=== PATIENT | female | born 1945 | race Caucasian/White ===

== ENCOUNTER 2020-05-22 18:29 | Observation (INO) | payer MEDICARE ==
[~2020-05-22] VITALS: Ht 165.1 cm; Wt 87.5 kg
[2020-05-22] MEDS ORDERED: IV NORMAL SALINE 500ML BAG 500 ML IV ONE (19:00)
[2020-05-22 19:03] LABS: BASO # 0.1 x10^3/uL (0.0-0.2); BASO % 1 % (0-3); EOS % 0 % (0-3); HEMATOCRIT 40.3 % (36.0-47.0); HEMOGLOBIN 13.8 g/dL (12.0-15.5); LYMPH # 3.9 x10^3/uL (1.0-4.8); LYMPH % 28 % (24-48); MEAN CORPUSCULAR HEMOGLOBIN 33 pg (25-35); MEAN CORPUSCULAR HGB CONC 34 g/dL (31-37); MEAN CORPUSCULAR VOLUME 95 fL (79-100); MONO # 0.8 x10^3/uL (0.0-1.1); MONO % 6 % (0-9); NEUT # 8.9 x10^3/uL (1.8-7.7); NEUT % 66 % (31-73); PLATELET COUNT 260 x10^3/uL (140-400); RED BLOOD COUNT 4.23 x10^6/uL (3.50-5.40); RED CELL DISTRIBUTION WIDTH 12.3 % (11.5-14.5); WHITE BLOOD COUNT 13.6 x10^3/uL (4.0-11.0)
[2020-05-22 19:12] LABS: PROTHROMBIN TIME PATIENT 12.3 SEC (11.7-14.0)
[2020-05-22] MEDS: NITROGLYCERIN SUBLINGUAL 0.4 MG BOTTLE OF 25. SL PRN ×3 (19:12→19:29)
[2020-05-22 19:14] LABS: CALCIUM 9.4 mg/dL (8.5-10.1); CREATININE 1.1 mg/dL (0.6-1.0); GFR 48.3; POTASSIUM 3.4 mmol/L (3.5-5.1)
[2020-05-22 19:16] LABS: D-DIMER 0.33 ug/mlFEU (0.00-0.50)
--- NOTE | 2020-05-22 19:18 | ED.ADGEN ---
General Adult EDM: Chief Complaint: CHEST PAIN HPI: HPI: Patient is a 75 year [id number] female coming in for left-sided chest heaviness. History is limited by patient's cooperation due to distress. Patient denies any cardiac history as history of hypertension. She was taking a hot shower when she felt lightheaded but did not pass out said the chest pain following which she described as heaviness, 8 out of 10, nonradiating. Has not had this kind of pain in the past. Was given 324 mg aspirin by EMS. Pain sta rted at 1645 Onset is around patient is still anxious and tachypneic. Asked patient to slow her breathing but she appears very anxious and dramatic. Presents as she has been under increased rest recently due to Covid. Review of Systems: Review of Systems: Limited by patient distress and cooperation, complaining of chest pain and near syncopal episode. Denies pain anywhere else or recent illness Current Medications: Current Medications Medications (Trade) Dose Ordered Sig/John Start Time Stop Time Status Last Admin Dose Admin Fentanyl Citrate (Fentanyl 2ml Vial) 75 mcg 1X ONCE 05/22/20 19:30 05/22/20 19:31 DC 05/22/20 19:14 75 MCG Nitroglycerin (Nitrostat) 0.4 mg PRN Q5MIN PRN 05/22/20 19:00 05/22/20 23:35 DC 05/22/20 19:29 0.4 MG Sodium Chloride 1,000 ml @ 1,000 mls/hr 1X ONCE 05/22/20 21:00 05/22/20 21:59 DC 05/22/20 21:00 1,000 MLS/HR Allergies: Allergies: Allergies Coded Allergies Type Severity Reaction Last Updated Verified Penicillins Allergy Severe Rash 05/22/20 Yes Sulfa (Sulfonamide Antibiotics) Allergy Severe Rash 05/22/20 Yes Physical Exam: PE: Constitutional: Well developed, well nourished, acute distress. [] HENT: Normocephalic, atraumatic, bilateral external ears normal, oropharynx moist, no oral exudates, nose normal. [] Eyes: PERRLA, EOMI, conjunctiva normal, no discharge. [] Neck: Normal range of motion, no tenderness, supple, no stridor. [] Symmetric radial pulse Cardiovascular:Heart rate regular rhythm, no murmur [] no chest tenderness Lungs & Thorax: Bilateral breath sounds clear to auscultation [] Abdomen: Bowel sounds normal, soft, no tenderness, no masses, no pulsatile masses. [] Skin: Warm, dry, no erythema, no rash. [] Extremities: No tenderness, no cyanosis, no clubbing, ROM intact, no edema. [] Neurologic: Alert and oriented X 3, normal motor function, normal sensory function, no focal deficits noted. [] Psychologic: Affect normal, judgement normal, mood normal. [] Current Patient Data: Labs: Laboratory Tests Test 05/22/20 18:38 05/22/20 22:15 05/22/20 22:25 White Blood Count 13.6 x10^3/uL (4.0-11.0) H Red Blood Count 4.23 x10^6/uL (3.50-5.40) Hemoglobin 13.8 g/dL (12.0-15.5) Hematocrit 40.3 % (36.0-47.0) Mean Corpuscular Volume 95 fL (79-100) Mean Corpuscular Hemoglobin 33 pg (25-35) Mean Corpuscular Hemoglobin Concent 34 g/dL (31-37) Red Cell Distribution Width 12.3 % (11.5-14.5) Platelet Count 260 x10^3/uL (140-400) Neutrophils (%) (Auto) 66 % (31-73) Lymphocytes (%) (Auto) 28 % (24-48) Monocytes (%) (Auto) 6 % (0-9) Eosinophils (%) (Auto) 0 % (0-3) Basophils (%) (Auto) 1 % (0-3) Neutrophils # (Auto) 8.9 x10^3/uL (1.8-7.7) H Lymphocytes # (Auto) 3.9 x10^3/uL (1.0-4.8) Monocytes # (Auto) 0.8 x10^3/uL (0.0-1.1) Eosinophils # (Auto) 0.0 x10^3/uL (0.0-0.7) Basophils # (Auto) 0.1 x10^3/uL (0.0-0.2) Prothrombin Time 12.3 SEC (11.7-14.0) Prothrombin Time INR 1.0 (0.8-1.1) D-Dimer (May) 0.33 ug/mlFEU (0.00-0.50) Sodium Level 139 mmol/L (136-145) Potassium Level 3.4 mmol/L (3.5-5.1) L Chloride Level 101 mmol/L (98-107) Carbon Dioxide Level 22 mmol/L (21-32) Anion Gap 16 (6-14) H Blood Urea Nitrogen 26 mg/dL (7-20) H Creatinine 1.1 mg/dL (0.6-1.0) H Estimated GFR (Cockcroft-Gault) 48.3 BUN/Creatinine Ratio 24 (6-20) H Glucose Level 175 mg/dL (70-99) H Calcium Level 9.4 mg/dL (8.5-10.1) Magnesium Level 1.7 mg/dL (1.8-2.4) L Total Bilirubin 0.4 mg/dL (0.2-1.0) Aspartate Amino Transferase (AST) 20 U/L (15-37) Alanine Aminotransferase (ALT) 26 U/L (14-59) Alkaline Phosphatase 78 U/L (46-116) Troponin I Quantitative < 0.017 ng/mL (0.000-0.055) < 0.017 ng/mL (0.000-0.055) WA-Lmt-[id number]-Type Natriuretic Peptide 129 pg/mL (0-449) Total Protein 7.2 g/dL (6.4-8.2) Albumin 4.2 g/dL (3.4-5.0) Albumin/Globulin Ratio 1.4 (1.0-1.7) Urine Collection Type Unknown Urine Color Yellow Urine Clarity Clear Urine pH 7.5 (<5.0-8.0) Urine Specific [place] 1.020 (1.000-1.030) Urine Protein Negative mg/dL (NEG-TRACE) Urine Glucose (UA) Negative mg/dL (NEG) Urine Ketones (Stick) 15 mg/dL (NEG) Urine Blood Negative (NEG) Urine Nitrite Negative (NEG) Urine Bilirubin Negative (NEG) Urine Urobilinogen Dipstick 1.0 mg/dL (0.2 mg/dL) Urine Leukocyte Esterase Small (NEG) Urine RBC 0 /HPF (0-2) Urine WBC 1-4 /HPF (0-4) Urine Squamous Epithelial Cells Mod /LPF Urine Bacteria Few /HPF (0-FEW) Urine Mucus Mod /LPF Urine Opiates Screen Neg (NEG) Urine Methadone Screen Neg (NEG) Urine Barbiturates Neg (NEG) Urine Phencyclidine Screen Neg (NEG) Urine Amphetamine/Methamphetamine Neg (NEG) Urine Benzodiazepines Screen Neg (NEG) Urine Cocaine Screen Neg (NEG) Urine Cannabinoids Screen Pos (NEG) Urine Ethyl Alcohol Neg (NEG) Laboratory Tests 05/22/20 18:38 Laboratory Tests 05/22/20 18:38 Vital Signs: Vital Signs Date Time Temp Pulse Resp B/P (MAP) Pulse Ox O2 Delivery O2 Flow Rate FiO2 05/22/20 23:00 98.0 104 23 116/53 (74) 95 Room Air 98.0 05/22/20 22:30 2.0 EKG: EK: Sinus tachycardia, heart rate 109 bpm, ST depressions in V4 V5 V6, no noted ST elevation [] Heart Score: HEART Score for Chest Pain: HEART Score for Chest Pain Response (Comments) Value History Highly Suspicious 2 ECG Nonspecific Repolarizatio 1 Age > 65 2 Risk Factors 1 or 2 Risk Factors 1 Troponin < Normal Limit 0 Total 6 Risk Factors: Risk Factors: DM, Current or recent (<one month) smoker, HTN, HLP, family history of CAD, obesity. Risk Scores: Score 0 - 3: 2.5% MACE over next 6 weeks - Discharge Home Score 4 - 6: 20.3% MACE over next 6 weeks - Admit for Clinical Observation Score 7 - 10: 72.7% MACE over next 6 weeks - Early Invasive Strategies Radiology/Procedures: Radiology/Procedures: Chest AP portable at 1901: Reason for examination: Chest pain. The heart size is normal. Mediastinum is unremarkable. Lung berg are clear. No acute bony abnormalities are seen. Impression: No acute cardiopulmonary disease.[] Course & Med Decision Making: Course & Med Decision Making Pertinent Labs and Imaging studies reviewed. (See chart for details) [] Dragon Disclaimer: Dragon Disclaimer: This electronic medical record was generated, in whole or in part, using a voice recognition dictation system. Departure Departure Impression: Primary Impression: Chest pain, rule out acute myocardial infarction Disposition: 09 ADMITTED INPT THIS HOSP Admitting Physician: ELISA Condition: STABLE TRACY MAZARIEGOS MD May 22, 2020 19:18
[2020-05-22 19:20] LABS: ALBUMIN 4.2 g/dL (3.4-5.0); ALBUMIN/GLOBULIN RATIO 1.4 (1.0-1.7); MAGNESIUM 1.7 mg/dL (1.8-2.4); TOTAL BILIRUBIN 0.4 mg/dL (0.2-1.0); TOTAL PROTEIN 7.2 g/dL (6.4-8.2)
--- NOTE | 2020-05-22 19:21 | RAD ---
Chest AP portable at 1901: Reason for examination: Chest pain. The heart size is normal. Mediastinum is unremarkable. Lung berg are clear. No acute bony abnormalities are seen. Impression: No acute cardiopulmonary disease. Electronically signed by: Janie Lundberg MD (05/22/2020 7:17 PM) KELLEN
[2020-05-22] MEDS ORDERED: fentaNYL PF VIAL 100 MCG/2 ML VIAL IVP ONE (19:30)
[2020-05-22] MEDS ORDERED: IV NORMAL SALINE 1000ML BAG 1,000 ML IV ONE (21:00)
[2020-05-22 22:42] LABS: BILIRUBIN,URINE NEGATIVE (NEG); CLARITY,URINE CLEAR; COLOR,URINE YELLOW; NITRITE,URINE NEGATIVE (NEG); PH,URINE 7.5 (<5.0-8.0); PROTEIN,URINE NEGATIVE (NEG-TRACE)
[2020-05-22 22:48] LABS: AMPHETAMINE/METHAMPHETAMINE NEG (NEG); BARBITURATES NEG (NEG); BENZODIAZEPINES NEG (NEG); CANNABINOIDS POS (NEG); COCAINE NEG (NEG); METHADONE NEG (NEG); OPIATES NEG (NEG); PHENCYCLIDINE NEG (NEG)
[2020-05-22 22:50] LABS: RBC,URINE 0 /HPF (0-2)
[2020-05-22 22:51] LABS: BACTERIA,URINE FEW /HPF (0-FEW)
[2020-05-22] MEDS ORDERED: NITROGLYCERIN SUBLINGUAL 0.4 MG BOTTLE OF 25. SL PRN (23:30)
[2020-05-22] MEDS ORDERED: ONDANSETRON PF 4 MG/2 ML VIAL. IV PRN (23:30)
[2020-05-22] MEDS ORDERED: ACETAMINOPHEN 325 MG TABLET. PO PRN (23:30)
[2020-05-22] MEDS ORDERED: fentaNYL PF VIAL 100 MCG/2 ML VIAL IV PRN (23:30)
[2020-05-23 00:35] VITALS: BP 124/72
[2020-05-23] MEDS ORDERED: CARB1DRO5 OP (02:55)
[2020-05-23] MEDS ORDERED: TRIA1CAP3 PO (02:55)
[2020-05-23] MEDS ORDERED: MULT-245 PO (02:55)
[2020-05-23] MEDS ORDERED: POTA5TAB2 PO (02:55)
[2020-05-23] MEDS ORDERED: LORA10TA3 PO (02:55)
[2020-05-23] MEDS ORDERED: ATOR40TA59 PO (02:55)
[2020-05-23] MEDS ORDERED: OMEP40CA45 PO (02:55)
[2020-05-23] MEDS ORDERED: ACET500T68 PO (02:55)
[2020-05-23] MEDS ORDERED: METO25TA4 PO (02:55)
[2020-05-23] MEDS ORDERED: ASPI-886 PO (02:55)
[2020-05-23] MEDS ORDERED: CALC-71 PO (02:55)
[2020-05-23] MEDS ORDERED: LISI20TA18 PO (02:55)
--- NOTE | 2020-05-23 02:59 | NUR ---
Patient arrived to unit at approx 0025 with protein chemist. Resting comfortably on RA. No complaints of pain. VS stable, assessment complete. Patient states that she was in the shower this morning when she started having chest tightness and dizziness, called EMS. Patient states that she normally walks 3 miles per day. Pt is currently living with her son and . Call light in reach, bed in low locked position, bed alarm on, reminded patient to call for assistance before ambulating. Will continue to monitor.
[2020-05-23 03:15] VITALS: BP 128/63
[2020-05-23 07:00] VITALS: BP 155/63
[2020-05-23] MEDS ORDERED: PANTOPRAZOLE 40 MG TABLET.DR. PO SCH (08:00)
--- NOTE | 2020-05-23 08:06 | PDOC1 ---
History and Physical Date of Admission Date of Admission DATE: 05/23/20 TIME: 07:52 Identification/Chief Complaint Chief Complaint Chest pain Source Source: Chart review, Patient History of Present Illness History of Present Illness Patient is a 75-year-old female past medical history hypertension, HLD, who presents to the ER with complaints of left-sided chest pain since yesterday afternoon. She reports chest heaviness, 8/10. Symptoms occurred as she was taking a shower, with associated lightheadedness. She denies any history of similar pain. This was contacted and she received aspirin prior to arrival to ER. Upon arrival in the ER she was in some noted distress and tachycardic. Her troponins have been negative. Due to her cardiac risk factors, we have been asked to admit patient for further evaluation. Past Medical History Past Medical History Hypertension, hyperlipidemia, GERD Past Surgical History Past Surgical History Hysterectomy, tonsillectomy Family History Family History Denies any pertinent history Social History Smoke: No ALCOHOL: none Drugs: Marijuana Current Problem List Problem List Problems Medical Problems: (1) Chest pain, rule out acute myocardial infarction Status: Acute Current Medications Current Medications Current Medications Fentanyl Citrate (Fentanyl 2ml Vial) 75 mcg 1X ONCE IVP Last administered on 05/22/20at 19:14; Start 05/22/20 at 19:30; Stop 05/22/20 at 19:31; Status DC Sodium Chloride 500 ml @ 500 mls/hr 1X ONCE IV Last administered on 05/22/20at 19:12; Start 05/22/20 at 19:00; Stop 05/22/20 at 19:59; Status DC Nitroglycerin (Nitrostat) 0.4 mg PRN Q5MIN PRN SL CP RATING > 1/10 Last administered on 05/22/20at 19:29; Start 05/22/20 at 19:00; Stop 05/22/20 at 23:35; Status DC Sodium Chloride 1,000 ml @ 1,000 mls/hr 1X ONCE IV Last administered on 05/22at 21:00; Start 05/22/20 at 21:00; Stop 05/22/20 at 21:59; Status DC Ondansetron HCl (Zofran) 4 mg PRN Q8HRS PRN IV NAUSEA/VOMITING 1ST CHOICE; Start 05/22/20 at 23:30; Stop 05/23/20 at 23:29 Fentanyl Citrate (Fentanyl 2ml Vial) 50 mcg PRN Q1HR PRN IV SEVERE PAIN 7-10; Start 05/22/20 at 23:30; Stop 05/23/20 at 23:29 Acetaminophen (Tylenol) 650 mg PRN Q4HRS PRN PO FEVER > 100.3'F Last administered on 05/23/20at 07:33; Start 05/22/20 at 23:30; Stop 05/23/20 at 23:29 Nitroglycerin (Nitrostat) 0.4 mg PRN Q5MIN PRN SL CHEST PAIN; Start 05/22/20 at 23:30; Stop 05/23/20 at 23:29 Active Scripts Active Reported Refresh Optive Advanced Drops (Carboxymethyl/Gly/Poly80/Pf) 1 Each Droperette 1 Each OP BID Acetaminophen 500 Mg Tablet 500 Mg PO HS Potassium Citrate 5 Meq Tablet.er 5 Meq PO DAILY Calcium 600 + Vit D Caplet (Calcium Carbonate/Vitamin D3) 1 Each Tablet 1 Each PO DAILY Multi Vitamin Daily (Multivitamin) 1 Each Tablet 1 Each PO DAILY Loratadine 10 Mg Tablet 10 Mg PO DAILY Aspirin Ec (Aspirin) 81 Mg Tablet.dr 81 Mg PO DAILY Metoprolol Tartrate 25 Mg Tablet 25 Mg PO DAILY Omeprazole 40 Mg Capsule.dr 40 Mg PO DAILY Triamterene-Hctz 37.5-25 Mg Cp (Triamterene/Hydrochlorothiazid) 1 Each Capsule 1 Cap PO DAILY Atorvastatin Calcium 40 Mg Tablet 40 Mg PO HS Lisinopril 20 Mg Tablet 20 Mg PO DAILY Allergies Allergies: Coded Allergies: Penicillins (Verified Allergy, Severe, Rash, 05/22/20) Sulfa (Sulfonamide Antibiotics) (Verified Allergy, Severe, Nausea, 05/23/20) upset stomach ROS Review of System GENERAL: No history of weight change, weakness or fevers. SKIN: No bruising, hair changes or rashes. EYES: No blurred, double or loss of vision. NOSE AND THROAT: No history of nosebleeds, hoarseness or sore throat. HEART: Chest pain. Denies palpitations. LUNGS: Denies cough, hemoptysis, wheezing or shortness of breath. GASTROINTESTINAL: Denies nausea, vomiting, abdominal pain. GENITOURINARY: Denies dysuria, frequency, urgency, hematuria. NEUROLOGIC: Denies history of numbness, tingling, tremor or weakness. PSYCHIATRIC: Denies anxiety, denies depression. ENDOCRINE: No history of heat or cold intolerance, polyuria or polydipsia. EXTREMITIES: Denies muscle weakness, joint pain, pain on walking or stiffness. Physical Exam Physical Exam General: Alert, Oriented X3, Cooperative, No acute distress HEENT: PERRLA, EOMI Lungs: Clear to auscultation, Normal air movement Heart: RRR, no murmurs Cardiovascular: S1, S2 Abdomen: Normal bowel sounds, Soft, No tenderness Extremities: No clubbing, No cyanosis Skin: No rashes, No significant lesion Neuro: Normal speech, Normal tone, Sensation intact Psych/Mental Status: Mental status NL, Mood NL Vitals Vitals Vital Signs Date Time Temp Pulse Resp B/P (MAP) Pulse Ox O2 Delivery O2 Flow Rate FiO2 05/23/20 03:15 98.4 85 18 128/63 (84) 97 Room Air 98.4 05/22/20 22:30 2.0 Labs Labs Laboratory Tests Test 05/22/20 18:38 05/22/20 22:15 05/22/20 22:25 05/23/20 00:20 White Blood Count 13.6 x10^3/uL (4.0-11.0) Red Blood Count 4.23 x10^6/uL (3.50-5.40) Hemoglobin 13.8 g/dL (12.0-15.5) Hematocrit 40.3 % (36.0-47.0) Mean Corpuscular Volume 95 fL (79-100) Mean Corpuscular Hemoglobin 33 pg (25-35) Mean Corpuscular Hemoglobin Concent 34 g/dL (31-37) Red Cell Distribution Width 12.3 % (11.5-14.5) Platelet Count 260 x10^3/uL (140-400) Neutrophils (%) (Auto) 66 % (31-73) Lymphocytes (%) (Auto) 28 % (24-48) Monocytes (%) (Auto) 6 % (0-9) Eosinophils (%) (Auto) 0 % (0-3) Basophils (%) (Auto) 1 % (0-3) Neutrophils # (Auto) 8.9 x10^3/uL (1.8-7.7) Lymphocytes # (Auto) 3.9 x10^3/uL (1.0-4.8) Monocytes # (Auto) 0.8 x10^3/uL (0.0-1.1) Eosinophils # (Auto) 0.0 x10^3/uL (0.0-0.7) Basophils # (Auto) 0.1 x10^3/uL (0.0-0.2) Prothrombin Time 12.3 SEC (11.7-14.0) Prothromb Time International Ratio 1.0 (0.8-1.1) D-Dimer (May) 0.33 ug/mlFEU (0.00-0.50) Sodium Level 139 mmol/L (136-145) Potassium Level 3.4 mmol/L (3.5-5.1) Chloride Level 101 mmol/L (98-107) Carbon Dioxide Level 22 mmol/L (21-32) Anion Gap 16 (6-14) Blood Urea Nitrogen 26 mg/dL (7-20) Creatinine 1.1 mg/dL (0.6-1.0) Estimated GFR (Cockcroft-Gault) 48.3 BUN/Creatinine Ratio 24 (6-20) Glucose Level 175 mg/dL (70-99) Calcium Level 9.4 mg/dL (8.5-10.1) Magnesium Level 1.7 mg/dL (1.8-2.4) Total Bilirubin 0.4 mg/dL (0.2-1.0) Aspartate Amino Transf (AST/SGOT) 20 U/L (15-37) Alanine Aminotransferase (ALT/SGPT) 26 U/L (14-59) Alkaline Phosphatase 78 U/L (46-116) Troponin I Quantitative < 0.017 ng/mL (0.000-0.055) < 0.017 ng/mL (0.000-0.055) < 0.017 ng/mL (0.000-0.055) FE-Jwj-G-Type Natriuretic Peptide 129 pg/mL (0-449) Total Protein 7.2 g/dL (6.4-8.2) Albumin 4.2 g/dL (3.4-5.0) Albumin/Globulin Ratio 1.4 (1.0-1.7) Urine Collection Type Unknown Urine Color Yellow Urine Clarity Clear Urine pH 7.5 (<5.0-8.0) Urine Specific [place] 1.020 (1.000-1.030) Urine Protein Negative mg/dL (NEG-TRACE) Urine Glucose (UA) Negative mg/dL (NEG) Urine Ketones (Stick) 15 mg/dL (NEG) Urine Blood Negative (NEG) Urine Nitrite Negative (NEG) Urine Bilirubin Negative (NEG) Urine Urobilinogen Dipstick 1.0 mg/dL (0.2 mg/dL) Urine Leukocyte Esterase Small (NEG) Urine RBC 0 /HPF (0-2) Urine WBC 1-4 /HPF (0-4) Urine Squamous Epithelial Cells Mod /LPF Urine Bacteria Few /HPF (0-FEW) Urine Mucus Mod /LPF Urine Opiates Screen Neg (NEG) Urine Methadone Screen Neg (NEG) Urine Barbiturates Neg (NEG) Urine Phencyclidine Screen Neg (NEG) Urine Amphetamine/Methamphetamine Neg (NEG) Urine Benzodiazepines Screen Neg (NEG) Urine Cocaine Screen Neg (NEG) Urine Cannabinoids Screen Pos (NEG) Urine Ethyl Alcohol Neg (NEG) Laboratory Tests Test 05/22/20 18:38 05/22/20 22:15 05/22/20 22:25 05/23/20 00:20 White Blood Count 13.6 x10^3/uL (4.0-11.0) Red Blood Count 4.23 x10^6/uL (3.50-5.40) Hemoglobin 13.8 g/dL (12.0-15.5) Hematocrit 40.3 % (36.0-47.0) Mean Corpuscular Volume 95 fL (79-100) Mean Corpuscular Hemoglobin 33 pg (25-35) Mean Corpuscular Hemoglobin Concent 34 g/dL (31-37) Red Cell Distribution Width 12.3 % (11.5-14.5) Platelet Count 260 x10^3/uL (140-400) Neutrophils (%) (Auto) 66 % (31-73) Lymphocytes (%) (Auto) 28 % (24-48) Monocytes (%) (Auto) 6 % (0-9) Eosinophils (%) (Auto) 0 % (0-3) Basophils (%) (Auto) 1 % (0-3) Neutrophils # (Auto) 8.9 x10^3/uL (1.8-7.7) Lymphocytes # (Auto) 3.9 x10^3/uL (1.0-4.8) Monocytes # (Auto) 0.8 x10^3/uL (0.0-1.1) Eosinophils # (Auto) 0.0 x10^3/uL (0.0-0.7) Basophils # (Auto) 0.1 x10^3/uL (0.0-0.2) Prothrombin Time 12.3 SEC (11.7-14.0) Prothromb Time International Ratio 1.0 (0.8-1.1) D-Dimer (May) 0.33 ug/mlFEU (0.00-0.50) Sodium Level 139 mmol/L (136-145) Potassium Level 3.4 mmol/L (3.5-5.1) Chloride Level 101 mmol/L (98-107) Carbon Dioxide Level 22 mmol/L (21-32) Anion Gap 16 (6-14) Blood Urea Nitrogen 26 mg/dL (7-20) Creatinine 1.1 mg/dL (0.6-1.0) Estimated GFR (Cockcroft-Gault) 48.3 BUN/Creatinine Ratio 24 (6-20) Glucose Level 175 mg/dL (70-99) Calcium Level 9.4 mg/dL (8.5-10.1) Magnesium Level 1.7 mg/dL (1.8-2.4) Total Bilirubin 0.4 mg/dL (0.2-1.0) Aspartate Amino Transf (AST/SGOT) 20 U/L (15-37) Alanine Aminotransferase (ALT/SGPT) 26 U/L (14-59) Alkaline Phosphatase 78 U/L (46-116) Troponin I Quantitative < 0.017 ng/mL (0.000-0.055) < 0.017 ng/mL (0.000-0.055) < 0.017 ng/mL (0.000-0.055) MJ-Fci-E-Type Natriuretic Peptide 129 pg/mL (0-449) Total Protein 7.2 g/dL (6.4-8.2) Albumin 4.2 g/dL (3.4-5.0) Albumin/Globulin Ratio 1.4 (1.0-1.7) Urine Collection Type Unknown Urine Color Yellow Urine Clarity Clear Urine pH 7.5 (<5.0-8.0) Urine Specific [place] 1.020 (1.000-1.030) Urine Protein Negative mg/dL (NEG-TRACE) Urine Glucose (UA) Negative mg/dL (NEG) Urine Ketones (Stick) 15 mg/dL (NEG) Urine Blood Negative (NEG) Urine Nitrite Negative (NEG) Urine Bilirubin Negative (NEG) Urine Urobilinogen Dipstick 1.0 mg/dL (0.2 mg/dL) Urine Leukocyte Esterase Small (NEG) Urine RBC 0 /HPF (0-2) Urine WBC 1-4 /HPF (0-4) Urine Squamous Epithelial Cells Mod /LPF Urine Bacteria Few /HPF (0-FEW) Urine Mucus Mod /LPF Urine Opiates Screen Neg (NEG) Urine Methadone Screen Neg (NEG) Urine Barbiturates Neg (NEG) Urine Phencyclidine Screen Neg (NEG) Urine Amphetamine/Methamphetamine Neg (NEG) Urine Benzodiazepines Screen Neg (NEG) Urine Cocaine Screen Neg (NEG) Urine Cannabinoids Screen Pos (NEG) Urine Ethyl Alcohol Neg (NEG) Images Images Chest AP portable at 1901: Reason for examination: Chest pain. The heart size is normal. Mediastinum is unremarkable. Lung berg are clear. No acute bony abnormalities are seen. Impression: No acute cardiopulmonary disease. VTE Prophylaxis Ordered VTE Prophylaxis Devices: No VTE Pharmacological Prophylaxi: Yes Assessment/Plan Assessment/Plan Unstable angina Dehydration Vasomotor nephropathy Hypomagnesemia Hypertension Hyperlipidemia Plan Troponins <0.017 x 3 Echocardiogram pending Consult cardiology for further recommendations. Barring any significant abnormalities on echocardiogram, she can receive ischemic work-up outpatient. Leukocytosis and elevated blood glucose likely reactive Replace magnesium IV fluids Resume home medications FEN - Cardiac diet PPX - Lovenox FULL CODE Dispo - observation for above; anticipate discharge home today after echocardiogram Justifications for Admission Other Justification MAYE BURCH MD May 23, 2020 08:06
[2020-05-23] MEDS ORDERED: CALCIUM CARBONATE 500 MG TAB.CHEW PO PRN (08:15)
[2020-05-23] MEDS ORDERED: MORPHINE SULFATE 2 MG/ML VIAL. IV PRN ×2 (08:15)
[2020-05-23] MEDS ORDERED: ONDANSETRON PF 4 MG/2 ML VIAL. IVP PRN (08:15)
[2020-05-23] MEDS ORDERED: MAG HYDROX/ALUMINUM HYD/SIMETH 30 ML ORAL.SUSP PO PRN (08:15)
[2020-05-23] MEDS ORDERED: ACETAMINOPHEN 325 MG TABLET. PO PRN (08:15)
[2020-05-23] MEDS ORDERED: MAGNESIUM HYDROXIDE 2,400 MG/30 ML ORAL.SUSP. PO PRN (08:15)
[2020-05-23] MEDS ORDERED: BISACODYL 10 MG SUPP.RECT. PR PRN (08:15)
[2020-05-23] MEDS ORDERED: MAGNESIUM SULFATE 1GM 100 ML IV ONE (08:30)
[2020-05-23] MEDS ORDERED: METOPROLOL TART IMMED RELEASE 25 MG TABLET. PO SCH (09:00)
[2020-05-23] MEDS ORDERED: ENOXAPARIN 40 MG/0.4 ML SYRINGE. SQ SCH (09:00)
[2020-05-23] MEDS ORDERED: ASPIRIN ENTERIC COATED 81 MG TABLET.DR. PO SCH (09:00)
[2020-05-23] MEDS ORDERED: LISINOPRIL 20 MG TABLET PO SCH (09:00)
[2020-05-23] MEDS ORDERED: TRIAMTERENE/HCTZ 37.5/25MG TABLET. PO SCH (09:00)
[2020-05-23 09:45] LABS: BASO % 0 % (0-3); EOS % 0 % (0-3); HEMATOCRIT 36.2 % (36.0-47.0); HEMOGLOBIN 12.4 g/dL (12.0-15.5); LYMPH # 3.4 x10^3/uL (1.0-4.8); LYMPH % 29 % (24-48); MEAN CORPUSCULAR HEMOGLOBIN 33 pg (25-35); MEAN CORPUSCULAR HGB CONC 34 g/dL (31-37); MEAN CORPUSCULAR VOLUME 96 fL (79-100); MONO # 1.1 x10^3/uL (0.0-1.1); MONO % 10 % (0-9); NEUT % 61 % (31-73); PLATELET COUNT 213 x10^3/uL (140-400); RED BLOOD COUNT 3.75 x10^6/uL (3.50-5.40); RED CELL DISTRIBUTION WIDTH 12.4 % (11.5-14.5); WHITE BLOOD COUNT 11.6 x10^3/uL (4.0-11.0)
[2020-05-23 11:00] VITALS: BP 149/69
--- NOTE | 2020-05-23 11:50 | NUR ---
SS following for discharge planning. SS reviewed pt chart and discussed with pt RN. Pt is from home with spouse and is currently on room air. ECHO ordered. Probable discharge to home today. SS will continue to follow for discharge planning.
--- NOTE | 2020-05-23 11:59 | PDOC2 ---
KRYSTAL LIU QUALITY CONTROL MICROBIOLOGIST 05/23/20 1159: CARDIAC CONSULT DATE OF CONSULT Date of Consult DATE: 05/23/20 TIME: 11:56 REASON FOR CONSULT Reason for Consult: Chest pain REFERRING PHYSICIAN Referring Physician: Dr. Merida SOURCE Source: Chart review, Patient HISTORY OF PRESENT ILLNESS HISTORY OF PRESENT ILLNESS This is a 75 yo female who presented secondary to dizziness and chest pressure, tightness. Patient reports that she began feeling bad yesterday afternoon. Reports she got up to get into the shower and felt slightly lightheaded, dizzy. Went ahead and took a shower, but made sure to have a hold of something for balance. Got out of the shower and noticed some pressure in her chest. Reports that he arms were slightly heavy and just felt "out of it". Son came home from work and called EMS. Reports feeling better after getting some IVFs. No recent illness/fevers. Denies any shortness of breathing, diaphoresis, or nausea/vomiting. PAST MEDICAL HISTORY Cardiovascular: HTN, Hyperlipidemia GI: GERD PAST SURGICAL HISTORY Past Surgical History: Tonsillectomy, Hysterectomy FAMILY HISTORY Family History: Heart Disease (mother ) SOCIAL HISTORY Smoke: No ALCOHOL: none Drugs: None Lives: with Family CURRENT MEDICATIONS CURRENT MEDICATIONS Current Medications Medications (Trade) Dose Ordered Sig/John Route PRN Reason Start Time Stop Time Status Last Admin Dose Admin Fentanyl Citrate (Fentanyl 2ml Vial) 75 mcg 1X ONCE IVP 05/22/20 19:30 05/22/20 19:31 DC 05/22/20 19:14 Sodium Chloride 500 ml @ 500 mls/hr 1X ONCE IV 05/22/20 19:00 05/22/20 19:59 DC 05/22/20 19:12 Nitroglycerin (Nitrostat) 0.4 mg PRN Q5MIN PRN SL CP RATING > 1/10 05/22/20 19:00 05/22/20 23:35 DC 05/22/20 19:29 Sodium Chloride 1,000 ml @ 1,000 mls/hr 1X ONCE IV 05/22/20 21:00 05/22/20 21:59 DC 05/22/20 21:00 Acetaminophen (Tylenol) 650 mg PRN Q4HRS PRN PO FEVER > 100.3'F 05/22/20 23:30 05/23/20 23:29 12/9/20 07:33 Aspirin (Ecotrin) 81 mg DAILY PO 05/23/20 09:00 05/23/20 09:00 Lisinopril (Prinivil) 20 mg DAILY PO 05/23/20 09:00 05/23/20 09:00 Metoprolol Tartrate (Lopressor) 25 mg DAILY PO 05/23/20 09:00 05/23/20 09:00 Pantoprazole Sodium (Protonix) 40 mg DAILYAC PO 05/23/20 08:00 05/23/20 08:00 Triamterene/HCTZ (Maxzide 37.5/ 25mg) 1 tab DAILY PO 05/23/20 09:00 05/23/20 09:00 Magnesium Sulfate/ Dextrose 100 ml @ 100 mls/hr 1X ONCE IV 05/23/20 08:30 05/23/20 09:29 DC 05/23/20 08:30 Enoxaparin Sodium (Lovenox 40mg Syringe) 40 mg Q24H SQ 05/23/20 09:00 05/23/20 09:00 ALLERGIES ALLERGIES: Coded Allergies: Penicillins (Verified Allergy, Severe, Rash, 05/22/20) Sulfa (Sulfonamide Antibiotics) (Verified Allergy, Severe, Nausea, 05/23/20) upset stomach ROS Review of System 14 point ROS conducted with pertinent positives noted above in HPI PHYSICAL EXAM General: Alert, Oriented X3, Cooperative, mild distress HEENT: Atraumatic, Mucous membr. moist/pink Lungs: Clear to auscultation Heart: Regular rate Abdomen: Soft, No tenderness Extremities: No edema, Normal pulses Skin: No significant lesion Neuro: Normal speech, Sensation intact Psych/Mental Status: Mental status NL, Mood NL MUSCULOSKELETAL: Osteoarthritic changes both hands VITALS/I&O VITALS/I&O: Vital Signs Date Time Temp Pulse Resp B/P (MAP) Pulse Ox O2 Delivery O2 Flow Rate FiO2 05/23/20 09:00 79 155/63 05/23/20 08:00 Room Air 05/23/20 07:00 98.3 18 97 98.3 05/22/20 22:30 2.0 I & O 05/22/20 05/22/20 05/23/20 15:00 23:00 07:00 Intake Total 1500 ml 0 ml Output Total 350 ml Balance 1500 ml -350 ml LABS Lab: Laboratory Tests Test 05/22/20 18:38 05/22/20 22:15 05/22/20 22:25 05/23/20 00:20 White Blood Count 13.6 x10^3/uL (4.0-11.0) H Red Blood Count 4.23 x10^6/uL (3.50-5.40) Hemoglobin 13.8 g/dL (12.0-15.5) Hematocrit 40.3 % (36.0-47.0) Mean Corpuscular Volume 95 fL (79-100) Mean Corpuscular Hemoglobin 33 pg (25-35) Mean Corpuscular Hemoglobin Concent 34 g/dL (31-37) Red Cell Distribution Width 12.3 % (11.5-14.5) Platelet Count 260 x10^3/uL (140-400) Neutrophils (%) (Auto) 66 % (31-73) Lymphocytes (%) (Auto) 28 % (24-48) Monocytes (%) (Auto) 6 % (0-9) Eosinophils (%) (Auto) 0 % (0-3) Basophils (%) (Auto) 1 % (0-3) Neutrophils # (Auto) 8.9 x10^3/uL (1.8-7.7) H Lymphocytes # (Auto) 3.9 x10^3/uL (1.0-4.8) Monocytes # (Auto) 0.8 x10^3/uL (0.0-1.1) Eosinophils # (Auto) 0.0 x10^3/uL (0.0-0.7) Basophils # (Auto) 0.1 x10^3/uL (0.0-0.2) Prothrombin Time 12.3 SEC (11.7-14.0) Prothrombin Time INR 1.0 (0.8-1.1) D-Dimer (May) 0.33 ug/mlFEU (0.00-0.50) Sodium Level 139 mmol/L (136-145) Potassium Level 3.4 mmol/L (3.5-5.1) L Chloride Level 101 mmol/L (98-107) Carbon Dioxide Level 22 mmol/L (21-32) Anion Gap 16 (6-14) H Blood Urea Nitrogen 26 mg/dL (7-20) H Creatinine 1.1 mg/dL (0.6-1.0) H Estimated GFR (Cockcroft-Gault) 48.3 BUN/Creatinine Ratio 24 (6-20) H Glucose Level 175 mg/dL (70-99) H Calcium Level 9.4 mg/dL (8.5-10.1) Magnesium Level 1.7 mg/dL (1.8-2.4) L Total Bilirubin 0.4 mg/dL (0.2-1.0) Aspartate Amino Transferase (AST) 20 U/L (15-37) Alanine Aminotransferase (ALT) 26 U/L (14-59) Alkaline Phosphatase 78 U/L (46-116) Troponin I Quantitative < 0.017 ng/mL (0.000-0.055) < 0.017 ng/mL (0.000-0.055) < 0.017 ng/mL (0.000-0.055) EQ-Hwf-G-Type Natriuretic Peptide 129 pg/mL (0-449) Total Protein 7.2 g/dL (6.4-8.2) Albumin 4.2 g/dL (3.4-5.0) Albumin/Globulin Ratio 1.4 (1.0-1.7) Urine Collection Type Unknown Urine Color Yellow Urine Clarity Clear Urine pH 7.5 (<5.0-8.0) Urine Specific [place] 1.020 (1.000-1.030) Urine Protein Negative mg/dL (NEG-TRACE) Urine Glucose (UA) Negative mg/dL (NEG) Urine Ketones (Stick) 15 mg/dL (NEG) Urine Blood Negative (NEG) Urine Nitrite Negative (NEG) Urine Bilirubin Negative (NEG) Urine Urobilinogen Dipstick 1.0 mg/dL (0.2 mg/dL) Urine Leukocyte Esterase Small (NEG) Urine RBC 0 /HPF (0-2) Urine WBC 1-4 /HPF (0-4) Urine Squamous Epithelial Cells Mod /LPF Urine Bacteria Few /HPF (0-FEW) Urine Mucus Mod /LPF Urine Opiates Screen Neg (NEG) Urine Methadone Screen Neg (NEG) Urine Barbiturates Neg (NEG) Urine Phencyclidine Screen Neg (NEG) Urine Amphetamine/Methamphetamine Neg (NEG) Urine Benzodiazepines Screen Neg (NEG) Urine Cocaine Screen Neg (NEG) Urine Cannabinoids Screen Pos (NEG) Urine Ethyl Alcohol Neg (NEG) Test 05/23/20 08:26 White Blood Count 11.6 x10^3/uL (4.0-11.0) H Red Blood Count 3.75 x10^6/uL (3.50-5.40) Hemoglobin 12.4 g/dL (12.0-15.5) Hematocrit 36.2 % (36.0-47.0) Mean Corpuscular Volume 96 fL (79-100) Mean Corpuscular Hemoglobin 33 pg (25-35) Mean Corpuscular Hemoglobin Concent 34 g/dL (31-37) Red Cell Distribution Width 12.4 % (11.5-14.5) Platelet Count 213 x10^3/uL (140-400) Neutrophils (%) (Auto) 61 % (31-73) Lymphocytes (%) (Auto) 29 % (24-48) Monocytes (%) (Auto) 10 % (0-9) H Eosinophils (%) (Auto) 0 % (0-3) Basophils (%) (Auto) 0 % (0-3) Neutrophils # (Auto) 7.0 x10^3/uL (1.8-7.7) Lymphocytes # (Auto) 3.4 x10^3/uL (1.0-4.8) Monocytes # (Auto) 1.1 x10^3/uL (0.0-1.1) Eosinophils # (Auto) 0.0 x10^3/uL (0.0-0.7) Basophils # (Auto) 0.0 x10^3/uL (0.0-0.2) Troponin I Quantitative < 0.017 ng/mL (0.000-0.055) Laboratory Tests 05/22/20 18:38 05/23/20 08:26 Laboratory Tests 05/22/20 18:38 ASSESSMENT/PLAN ASSESSMENT/PLAN 1. Chest pain/pressure, atypical; AMI ruled out 2. Hypertension; controlled 3. Hyperlipidemia; statin 4. GERD 5. Hypokalemia, hypomagnesemia; replaced 6. Hyperglycemia; as per PCP Recommendations ASA Lipids Echo to assess LV systolic function Will arrange outpatient ischemic evaluation Follow up with Dr. De Los Santos as scheduled. JOSE DE LOS SANTOS MD 05/23/20 1624: CARDIAC CONSULT ASSESSMENT/PLAN ASSESSMENT/PLAN Patient seen and examined Chest pain. Resolved. Infarction ruled out. Echocardiogram pending. Outpatient follow-up with ischemia evaluation. Hypertension. Controlled on present medications. Hyperlipidemia. Continue on statin. Gastroesophageal reflux disease. Continue baseline medications. Hypokalemia and hypomagnesemia. Replaced. Thank you for allowing us to participate in the care of your patient. KRYSTAL LIU APRN May 23, 2020 11:59 JOSE DE LOS SANTOS MD May 23, 2020 16:24
--- NOTE | 2020-05-23 14:49 | PDOC3 ---
Discharge Summary Visit Information Date of Admission: May 23, 2020 Date of Discharge: May 23, 2020 Final Diagnosis Problems Medical Problems: (1) Chest pain, rule out acute myocardial infarction Status: Acute Brief Hospital Course Allergies Allergies Coded Allergies Type Severity Reaction Last Updated Verified Penicillins Allergy Severe Rash 05/22/20 Yes Sulfa (Sulfonamide Antibiotics) Allergy Severe Nausea 05/23/20 Yes Vital Signs Vital Signs Date Time Temp Pulse Resp B/P (MAP) Pulse Ox O2 Delivery O2 Flow Rate FiO2 05/23/20 11:00 97.9 66 18 149/69 (95) 97 Room Air 97.9 05/22/20 22:30 2.0 Lab Results Laboratory Tests Test 05/22/20 18:38 05/22/20 22:15 05/22/20 22:25 05/23/20 00:20 White Blood Count 13.6 x10^3/uL (4.0-11.0) Red Blood Count 4.23 x10^6/uL (3.50-5.40) Hemoglobin 13.8 g/dL (12.0-15.5) Hematocrit 40.3 % (36.0-47.0) Mean Corpuscular Volume 95 fL (79-100) Mean Corpuscular Hemoglobin 33 pg (25-35) Mean Corpuscular Hemoglobin Concent 34 g/dL (31-37) Red Cell Distribution Width 12.3 % (11.5-14.5) Platelet Count 260 x10^3/uL (140-400) Neutrophils (%) (Auto) 66 % (31-73) Lymphocytes (%) (Auto) 28 % (24-48) Monocytes (%) (Auto) 6 % (0-9) Eosinophils (%) (Auto) 0 % (0-3) Basophils (%) (Auto) 1 % (0-3) Neutrophils # (Auto) 8.9 x10^3/uL (1.8-7.7) Lymphocytes # (Auto) 3.9 x10^3/uL (1.0-4.8) Monocytes # (Auto) 0.8 x10^3/uL (0.0-1.1) Eosinophils # (Auto) 0.0 x10^3/uL (0.0-0.7) Basophils # (Auto) 0.1 x10^3/uL (0.0-0.2) Prothrombin Time 12.3 SEC (11.7-14.0) Prothromb Time International Ratio 1.0 (0.8-1.1) D-Dimer (May) 0.33 ug/mlFEU (0.00-0.50) Sodium Level 139 mmol/L (136-145) Potassium Level 3.4 mmol/L (3.5-5.1) Chloride Level 101 mmol/L (98-107) Carbon Dioxide Level 22 mmol/L (21-32) Anion Gap 16 (6-14) Blood Urea Nitrogen 26 mg/dL (7-20) Creatinine 1.1 mg/dL (0.6-1.0) Estimated GFR (Cockcroft-Gault) 48.3 BUN/Creatinine Ratio 24 (6-20) Glucose Level 175 mg/dL (70-99) Calcium Level 9.4 mg/dL (8.5-10.1) Magnesium Level 1.7 mg/dL (1.8-2.4) Total Bilirubin 0.4 mg/dL (0.2-1.0) Aspartate Amino Transf (AST/SGOT) 20 U/L (15-37) Alanine Aminotransferase (ALT/SGPT) 26 U/L (14-59) Alkaline Phosphatase 78 U/L (46-116) Troponin I Quantitative < 0.017 ng/mL (0.000-0.055) < 0.017 ng/mL (0.000-0.055) < 0.017 ng/mL (0.000-0.055) DI-Lck-O-Type Natriuretic Peptide 129 pg/mL (0-449) Total Protein 7.2 g/dL (6.4-8.2) Albumin 4.2 g/dL (3.4-5.0) Albumin/Globulin Ratio 1.4 (1.0-1.7) Urine Collection Type Unknown Urine Color Yellow Urine Clarity Clear Urine pH 7.5 (<5.0-8.0) Urine Specific [place] 1.020 (1.000-1.030) Urine Protein Negative mg/dL (NEG-TRACE) Urine Glucose (UA) Negative mg/dL (NEG) Urine Ketones (Stick) 15 mg/dL (NEG) Urine Blood Negative (NEG) Urine Nitrite Negative (NEG) Urine Bilirubin Negative (NEG) Urine Urobilinogen Dipstick 1.0 mg/dL (0.2 mg/dL) Urine Leukocyte Esterase Small (NEG) Urine RBC 0 /HPF (0-2) Urine WBC 1-4 /HPF (0-4) Urine Squamous Epithelial Cells Mod /LPF Urine Bacteria Few /HPF (0-FEW) Urine Mucus Mod /LPF Urine Opiates Screen Neg (NEG) Urine Methadone Screen Neg (NEG) Urine Barbiturates Neg (NEG) Urine Phencyclidine Screen Neg (NEG) Urine Amphetamine/Methamphetamine Neg (NEG) Urine Benzodiazepines Screen Neg (NEG) Urine Cocaine Screen Neg (NEG) Urine Cannabinoids Screen Pos (NEG) Urine Ethyl Alcohol Neg (NEG) Test 05/23/20 08:26 White Blood Count 11.6 x10^3/uL (4.0-11.0) Red Blood Count 3.75 x10^6/uL (3.50-5.40) Hemoglobin 12.4 g/dL (12.0-15.5) Hematocrit 36.2 % (36.0-47.0) Mean Corpuscular Volume 96 fL (79-100) Mean Corpuscular Hemoglobin 33 pg (25-35) Mean Corpuscular Hemoglobin Concent 34 g/dL (31-37) Red Cell Distribution Width 12.4 % (11.5-14.5) Platelet Count 213 x10^3/uL (140-400) Neutrophils (%) (Auto) 61 % (31-73) Lymphocytes (%) (Auto) 29 % (24-48) Monocytes (%) (Auto) 10 % (0-9) Eosinophils (%) (Auto) 0 % (0-3) Basophils (%) (Auto) 0 % (0-3) Neutrophils # (Auto) 7.0 x10^3/uL (1.8-7.7) Lymphocytes # (Auto) 3.4 x10^3/uL (1.0-4.8) Monocytes # (Auto) 1.1 x10^3/uL (0.0-1.1) Eosinophils # (Auto) 0.0 x10^3/uL (0.0-0.7) Basophils # (Auto) 0.0 x10^3/uL (0.0-0.2) Troponin I Quantitative < 0.017 ng/mL (0.000-0.055) Laboratory Tests Test 05/22/20 18:38 05/22/20 22:15 05/22/20 22:25 05/23/20 00:20 White Blood Count 13.6 x10^3/uL (4.0-11.0) Red Blood Count 4.23 x10^6/uL (3.50-5.40) Hemoglobin 13.8 g/dL (12.0-15.5) Hematocrit 40.3 % (36.0-47.0) Mean Corpuscular Volume 95 fL (79-100) Mean Corpuscular Hemoglobin 33 pg (25-35) Mean Corpuscular Hemoglobin Concent 34 g/dL (31-37) Red Cell Distribution Width 12.3 % (11.5-14.5) Platelet Count 260 x10^3/uL (140-400) Neutrophils (%) (Auto) 66 % (31-73) Lymphocytes (%) (Auto) 28 % (24-48) Monocytes (%) (Auto) 6 % (0-9) Eosinophils (%) (Auto) 0 % (0-3) Basophils (%) (Auto) 1 % (0-3) Neutrophils # (Auto) 8.9 x10^3/uL (1.8-7.7) Lymphocytes # (Auto) 3.9 x10^3/uL (1.0-4.8) Monocytes # (Auto) 0.8 x10^3/uL (0.0-1.1) Eosinophils # (Auto) 0.0 x10^3/uL (0.0-0.7) Basophils # (Auto) 0.1 x10^3/uL (0.0-0.2) Prothrombin Time 12.3 SEC (11.7-14.0) Prothromb Time International Ratio 1.0 (0.8-1.1) D-Dimer (May) 0.33 ug/mlFEU (0.00-0.50) Sodium Level 139 mmol/L (136-145) Potassium Level 3.4 mmol/L (3.5-5.1) Chloride Level 101 mmol/L (98-107) Carbon Dioxide Level 22 mmol/L (21-32) Anion Gap 16 (6-14) Blood Urea Nitrogen 26 mg/dL (7-20) Creatinine 1.1 mg/dL (0.6-1.0) Estimated GFR (Cockcroft-Gault) 48.3 BUN/Creatinine Ratio 24 (6-20) Glucose Level 175 mg/dL (70-99) Calcium Level 9.4 mg/dL (8.5-10.1) Magnesium Level 1.7 mg/dL (1.8-2.4) Total Bilirubin 0.4 mg/dL (0.2-1.0) Aspartate Amino Transf (AST/SGOT) 20 U/L (15-37) Alanine Aminotransferase (ALT/SGPT) 26 U/L (14-59) Alkaline Phosphatase 78 U/L (46-116) Troponin I Quantitative < 0.017 ng/mL (0.000-0.055) < 0.017 ng/mL (0.000-0.055) < 0.017 ng/mL (0.000-0.055) NX-Npj-I-Type Natriuretic Peptide 129 pg/mL (0-449) Total Protein 7.2 g/dL (6.4-8.2) Albumin 4.2 g/dL (3.4-5.0) Albumin/Globulin Ratio 1.4 (1.0-1.7) Urine Collection Type Unknown Urine Color Yellow Urine Clarity Clear Urine pH 7.5 (<5.0-8.0) Urine Specific [place] 1.020 (1.000-1.030) Urine Protein Negative mg/dL (NEG-TRACE) Urine Glucose (UA) Negative mg/dL (NEG) Urine Ketones (Stick) 15 mg/dL (NEG) Urine Blood Negative (NEG) Urine Nitrite Negative (NEG) Urine Bilirubin Negative (NEG) Urine Urobilinogen Dipstick 1.0 mg/dL (0.2 mg/dL) Urine Leukocyte Esterase Small (NEG) Urine RBC 0 /HPF (0-2) Urine WBC 1-4 /HPF (0-4) Urine Squamous Epithelial Cells Mod /LPF Urine Bacteria Few /HPF (0-FEW) Urine Mucus Mod /LPF Urine Opiates Screen Neg (NEG) Urine Methadone Screen Neg (NEG) Urine Barbiturates Neg (NEG) Urine Phencyclidine Screen Neg (NEG) Urine Amphetamine/Methamphetamine Neg (NEG) Urine Benzodiazepines Screen Neg (NEG) Urine Cocaine Screen Neg (NEG) Urine Cannabinoids Screen Pos (NEG) Urine Ethyl Alcohol Neg (NEG) Test 05/23/20 08:26 White Blood Count 11.6 x10^3/uL (4.0-11.0) Red Blood Count 3.75 x10^6/uL (3.50-5.40) Hemoglobin 12.4 g/dL (12.0-15.5) Hematocrit 36.2 % (36.0-47.0) Mean Corpuscular Volume 96 fL (79-100) Mean Corpuscular Hemoglobin 33 pg (25-35) Mean Corpuscular Hemoglobin Concent 34 g/dL (31-37) Red Cell Distribution Width 12.4 % (11.5-14.5) Platelet Count 213 x10^3/uL (140-400) Neutrophils (%) (Auto) 61 % (31-73) Lymphocytes (%) (Auto) 29 % (24-48) Monocytes (%) (Auto) 10 % (0-9) Eosinophils (%) (Auto) 0 % (0-3) Basophils (%) (Auto) 0 % (0-3) Neutrophils # (Auto) 7.0 x10^3/uL (1.8-7.7) Lymphocytes # (Auto) 3.4 x10^3/uL (1.0-4.8) Monocytes # (Auto) 1.1 x10^3/uL (0.0-1.1) Eosinophils # (Auto) 0.0 x10^3/uL (0.0-0.7) Basophils # (Auto) 0.0 x10^3/uL (0.0-0.2) Troponin I Quantitative < 0.017 ng/mL (0.000-0.055) Brief Hospital Course Ms. Rahman is a 75 old female who presented with chest pressure and near syncope. Consultations placed to cardiology. Troponins <0.017 x 3. Symptoms appear to resolved with IV fluid, patient feels she may be dehydrated. Cardio logy recommending echocardiogram and outpatient ischemic work-up. Assessment Assessment Unstable angina Dehydration Vasomotor nephropathy Hypomagnesemia Hypertension Hyperlipidemia Discharge Information Condition at Discharge: Improved Follow Up: Weeks Disposition/Orders: D/C to Home Scheduled Acetaminophen (Acetaminophen) 500 Mg Tablet, 500 MG PO HS for , (Reported) Entered as Reported by: CALVIN MORILLO RN on 05/23/20 0142 Last Action: HELD on 05/23/20748 by MAYE BURCH MD Aspirin (Aspirin Ec) 81 Mg Tablet.dr, 81 MG PO DAILY for , (Reported) Entered as Reported by: CALVIN MORILLO RN on 05/23/20254 Last Action: Continued on 05/23/20748 by MAYE BURCH MD Atorvastatin Calcium (Atorvastatin Calcium) 40 Mg Tablet, 40 MG PO HS for FOR CHOLESTEROL, #30 Ref 0 (Reported) Entered as Reported by: CALVIN MORILLO RN on 05/23/20254 Last Action: Continued on 05/23/20748 by MAYE BURCH MD Calcium Carbonate/Vitamin D3 (Calcium 600 + Vit D Caplet) 1 Each Tablet, 1 EACH PO DAILY for , (Reported) Entered as Reported by: CALVIN MORILLO RN on 05/23/20254 Last Action: HELD on 05/23/20748 by MAYE BURCH MD Carboxymethyl/Gly/Poly80/Pf (Refresh Optive Advanced Drops) 1 Each Droperette, 1 EACH OP BID for , (Reported) Entered as Reported by: CALVIN MORILLO RN on 05/23/20254 Last Action: HELD on 05/23/20748 by MAYE BURCH MD Lisinopril (Lisinopril) 20 Mg Tablet, 20 MG PO DAILY for FOR HYPERTENSION, #30 Ref 0 (Reported) Entered as Reported by: CALVIN MORILLO RN on 05/23/20254 Last Action: Continued on 05/23/20748 by AMYE BURCH MD Loratadine (Loratadine) 10 Mg Tablet, 10 MG PO DAILY for , (Reported) Entered as Reported by: CALVIN MORILLO RN on 05/23/20254 Last Action: HELD on 05/23/20748 by MAYE BURCH MD Metoprolol Tartrate (Metoprolol Tartrate) 25 Mg Tablet, 25 MG PO DAILY for FOR HYPERTENSION, #60 Ref 0 (Reported) Entered as Reported by: CALVIN MORILLO RN on 05/23/20254 Last Action: Continued on 05/23/20748 by MAYE BURCH MD Multivitamin (Multi Vitamin Daily) 1 Each Tablet, 1 EACH PO DAILY for , (Reported) Entered as Reported by: CALVIN MORILLO RN on 05/23/20254 Last Action: HELD on 05/23/20748 by MAYE BURCH MD Omeprazole (Omeprazole) 40 Mg Capsule.dr, 40 MG PO DAILY for , (Reported) Entered as Reported by: CALVIN MORILLO RN on 05/23/20254 Last Action: Converted on 05/23/20748 by MAYE BURCH MD Potassium Citrate (Potassium Citrate) 5 Meq Tablet.er, 5 MEQ PO DAILY for , (Reported) Entered as Reported by: CALVIN MORILLO RN on 05/23/20254 Last Action: HELD on 05/23/20748 by MAYE BURCH MD Triamterene/Hydrochlorothiazid (Triamterene-Hctz 37.5-25 Mg Cp) 1 Each Capsule, 1 CAP PO DAILY for , (Reported) Entered as Reported by: CALVIN MORILLO RN on 05/23/20254 Last Action: Converted on 05/23/20748 by MAYE BURCH MD Justicifation of Admission Dx: Justifications for Admission: Justification of Admission Dx: Yes (Chest pain) MAYE BURCH MD May 23, 2020 14:49
[2020-05-23 15:00] VITALS: BP 146/48
[2020-05-23 15:52] LABS: CHOLESTEROL/HDL RATIO 2.7
--- NOTE | 2020-05-23 16:36 | CARD ---
MR#: [id number] Date of Study: 05/23/2020 Ordering Physician: MAYE BURCH, Referring Physician: MAYE BURCH, Tech: Cheyenne Sainz RDCS APPROVED REPORT EXAM: Two-dimensional and M-mode echocardiogram with Doppler and color Doppler. Other Information Quality : Good Rhythm : NSR INDICATION Chest pain. 2D DIMENSIONS RVDd3.1 (2.9-3.5cm)IVSd1.0 (0.7-1.1cm) Aortic Root(2D)3.3 (2.0-3.7cm)LVDd4.0 (3.9-5.9cm) LVOT Diameter2.1 (1.8-2.4cm)PWd0.7 (0.7-1.1cm) LVDs2.6 (2.5-4.0cm)FS (%) 34.8 % SV45.6 mlLVEF(%)64.6 (>50%) Aortic Valve AoV Peak Kofi.133.6cm/Celso Peak GR.7.1mmHg LVOT Peak Kofi.119.1cm/sAVA (VMAX)3.17cm2 Mitral Valve MV E Ljzmzibk018.7cm/sMV DECEL [id number] MV A Ssomdawj55.5cm/sE/A Ratio1.2 MV A [id number] Pulmonary Valve PV Peak Trblcsfh90.4cm/s Tricuspid Valve TR P. Tyvxmnbd207ey/sRAP [id number] TR Peak Gr.[id number] Pulmonary Vein S1 Aefmdnwd39.5cm/sD2 Oxuhlmxi84.1cm/s PVa [id number] LEFT VENTRICLE The left ventricle is normal size. Mild basal septal hypertrophy. Left ventricle systolic function is normal. The Ejection Fraction is 60-65%. There is normal LV segmental wall motion. RIGHT VENTRICLE The right ventricle is normal size. The right ventricular systolic function is normal. ATRIA The left atrium is mildly dilated. The right atrium size is normal. The interatrial septum is intact with no evidence for an atrial septal defect or patent foramen ovale as noted on 2-D or Doppler imagi ng. AORTIC VALVE The aortic valve is mildly calcified. Trace aortic regurgitation. No significant aortic valvular sten osis. MITRAL VALVE The mitral valve is mildly thickened. There is no mitral valve stenosis. Trace mitral regurgitation. TRICUSPID VALVE The tricuspid valve is normal in structure and function. Mild to moderate tricuspid regurgitation. Th e PA pressure was estimated at 30-35 mmHg. PULMONIC VALVE The pulmonic valve is not well visualized. GREAT VESSELS The aortic root is normal in size. The IVC is normal in size and collapses >50% with inspiration. PERICARDIAL EFFUSION There is no evidence of significant pericardial effusion. Critical Notification Critical Value: No <Conclusion> Left ventricle systolic function is normal. The Ejection Fraction is 60-65%. There is normal LV segmental wall motion. Trace mitral regurgitation. Mild to moderate tricuspid regurgitation. The PA pressure was estimated at 30-35 mmHg. There is no evidence of significant pericardial effusion. Signed by : Barber Bennett, Electronically Approved : 05/23/2020 16:36:08
--- NOTE | 2020-05-23 18:27 | NUR ---
Discharge Note: TOMAS FIELDS S2 FILION Discharge instructions and discharge home medications reviewed with Patient and a copy given. All questions have been answered and understanding verbalized. The following instructions and handouts were given: CP Discontinued lines and drains: Peripheral IV intact. Patient discharged to Home or Self Care with Spouse via Wheelchair
[2020-05-23] MEDS ORDERED: ATORVASTATIN CALCIUM 40 MG TABLET. PO SCH (21:00)
== END 2020-05-23 18:28 | disposition home or self-care (01) ==
LOC: ER 18:29 → 2 NORTH 23:20
PROVIDERS: ADMIT Internal Medicine; ATTEND Internal Medicine
DX: I20.0 Unstable angina (principal); I10 Essential (primary) hypertension; E86.0 Dehydration; N17.0 Acute kidney failure with tubular necrosis; E83.42 Hypomagnesemia; E87.6 Hypokalemia; E78.5 Hyperlipidemia, unspecified; K21.9 Gastro-esophageal reflux disease without esophagitis; Z90.710 Acquired absence of both cervix and uterus; Z90.49 Acquired absence of other specified parts of digestive tract; Z79.82 Long term (current) use of aspirin; Z79.899 Other long term (current) drug therapy
CPT/HCPCS: 36415; 71045; 80053; 80061; 80307; 81001; 83735; 83880; 84484; 85025; 85379; 85610; 87086; 93005; 93306; 96361; 96365; 96372; 96374; 96375; 99285; G0378; J1650; J2405; J3010; J3475; J7030; J7040; J8597; 96366; G0379

== ENCOUNTER 2020-05-23 22:12 | Emergency (ER) | payer MEDICARE ==
[~2020-05-23] VITALS: Ht 165.1 cm; Wt 84.0 kg
[~2020-05-23 22:12] MED LIST: ACET500T68 PO; ASPI-886 PO; ATOR40TA59 PO; CALC-71 PO; CARB1DRO5 OP; LISI-334 PO; LORA10TA3 PO; METO25TA4 PO; MULT-245 PO; OMEP40CA45 PO; POTA5TAB2 PO; TRIA1CAP3 PO
--- NOTE | 2020-05-23 22:52 | PHYS DOC ---
Past Medical History Past Medical History: GERD, High Cholesterol, Hypertension (JUMA DELAROSA APRN) Past Surgical History: Hysterectomy, Tonsillectomy (JUMA DELAROSA APRN) Smoking Status: Never Smoker Alcohol Use: None (JUMA DELAROSA APRN) General Adult EDM: Chief Complaint: WEAKNESS/GENERALIZED HPI: HPI: Patient is a 75 year old female patient presents with increased weakness. Patient had been seen in this emergency room yesterday for weakness, near syncope, had been admitted overnight observation and discharged with unchanged cardiac markers, discharged home. Patient reports she had been at home, had a snack, when laid down started to have some dizziness and lightheadedness again, and felt weak after this. States she has not fallen. States she has eaten, denies any nausea, denies any vomiting, denies any diarrhea. Patient denies any pain (JUMA DELAROSA APRN) Review of Systems: Review of Systems: Constitutional: Denies fever or chills. Does report general malaise [] Eyes: Denies change in visual acuity. Denies visual changes [] HENT: Denies nasal congestion or sore throat. [] Respiratory: Denies cough or shortness of breath. [] Cardiovascular: Denies chest pain or edema. [] GI: Denies abdominal pain, nausea, vomiting, bloody stools or diarrhea. [] : Denies dysuria. [] Musculoskeletal: Denies back pain or joint pain. [] Integument: Denies rash. [] Neurologic: Denies headache, focal weakness or sensory changes. Does state intermittent lightheadedness, worse after laying down [] Endocrine: Denies polyuria or polydipsia. [] Lymphatic: Denies swollen glands. [] Psychiatric: Denies depression or anxiety. [] (JUMA DELAROSA APRN) Heart Score: HEART Score for Chest Pain: HEART Score for Chest Pain Response (Comments) Value History Slighlty/Non-Suspicious 0 ECG Normal 0 Age > 65 2 Risk Factors >3 Risk Factors or Hx CAD 2 Troponin < Normal Limit 0 Total 4 Risk Factors: Risk Factors: DM, Current or recent (<one month) smoker, HTN, HLP, family history of CAD, obesity. Risk Scores: Score 0 - 3: 2.5% MACE over next 6 weeks - Discharge Home Score 4 - 6: 20.3% MACE over next 6 weeks - Admit for Clinical Observation Score 7 - 10: 72.7% MACE over next 6 weeks - Early Invasive Strategies (JUMA DELAROSA APRN) Allergies: Allergies: Allergies Coded Allergies Type Severity Reaction Last Updated Verified Penicillins Allergy Severe Rash 05/22/20 Yes Sulfa (Sulfonamide Antibiotics) Allergy Severe Nausea 05/23/20 Yes (JUMA DELAROSA APRN) Physical Exam: PE: Constitutional: Well developed, well nourished, no acute distress, non-toxic appearance. Appears anxious [] HENT: Normocephalic, atraumatic, bilateral external ears normal, oropharynx dry, no oral exudates, nose normal. [] Eyes: PERRLA, EOMI, conjunctiva normal, no discharge. [] Neck: Normal range of motion, no tenderness, supple, no stridor. [] Cardiovascular:Heart rate regular rhythm, no murmur [] Lungs & Thorax: Bilateral breath sounds clear to auscultation [] conversant with some tachypnea without respiratory distress, room air SPO2 maintaining 99% Abdomen: Bowel sounds normal, soft, no tenderness, no masses, no pulsatile masses. [] Skin: Warm, dry, no erythema, no rash. [] Back: No tenderness, no CVA tenderness. [] Extremities: No tenderness, no cyanosis, no clubbing, ROM intact, no edema. [] Neurologic: Alert and oriented X 3, normal motor function, normal sensory function, no focal deficits noted. [] Psychologic: Affect normal, judgement normal, mood normal. Patient appearing anxious [] (JUMA DELAROSA APRN) EKG: EKG: []NOrmal sinus rhythm without ST changes, HR 80. no STEMI per Dr Bauman @ 2307. EKG yesterday reported to have ST Depression in V4/V5/V6 without notable depression on current EKG (JUMA DELAROSA APRN) Radiology/Procedures: Radiology/Procedures: []PROCEDURE: CHEST AP ONLY Chest AP portable at 2250: Reason for examination: Malaise. Comparison is made to previous study dated 05/22/2020. The heart size is normal. Mediastinum is unremarkable. Lung berg are clear. There continues be some mild elevation of the right hemidiaphragm. No acute bony abnormalities are seen. IMPRESSION: No acute cardiopulmonary disease. Electronically signed by: Janie Oconnell MD (05/23/2020 10:59 PM) [facility] DICTATED and SIGNED BY: JANIE OCONNELL MD DATE: 05/23/20 [id number] 0 (JUMA DELAROSA APRN) Course & Med Decision Making: Course & Med Decision Making Pertinent Labs and Imaging studies reviewed. (See chart for details) [] Patient reportedly had echocardiogram today with cardiology with no abnormal findings. Patient had consultation with cardiology today, has plan for further outpatient cardiology work-up with Dr. Kaminski scheduled, however was cleared by cardiology of acute coronary syndromes. Patient reportedly had only been home for a couple hours today when she started to have these concerning symptoms and dizziness again. Patient does report she has not really been eating or drinking anything at home Patient states she just doesn't feel right in her mind. discussed positive THC in UA, to which she initially states she has never used anything but later reports she had found some chocolate in her freezer tonight which she also had the night before and shortly afterward she started to feel different. Discussed importance of follow up with PCP. (JUMA DELAROSA APRN) Course & Med Decision Making I have reviewed the PA/PROJ ENGINEER's note and Plan of Care. I was available for consultation as needed during the patient's visit in the emergency department. I agree with the clinical impression, plans and disposition. (ROSANNE BAUMAN MD) Dragon Disclaimer: Dragon Disclaimer: This electronic medical record was generated, in whole or in part, using a voice recognition dictation system. (JUMA DELAROSA APRN) Departure Departure Impression: Primary Impression: Weakness Additional Impression: Light-headed feeling Disposition: 01 DC HOME SELF CARE/HOMELESS Condition: GOOD Referrals: BERNADETTE KOCH MD (PCP) Patient Instructions: Weakness, [id number] Additional Instructions: Get some rest when you get home. Try to get some sleep. Follow up with your primary care provider in the next couple days. Try to avoid eating anything abnormal at home that may cause a return of these symptoms. JUMA DELAROSA APRN May 23, 2020 22:52 ROSANNE BAUMAN MD May 24, 2020 01:20
[2020-05-23 22:58] LABS: BASO # 0.1 x10^3/uL (0.0-0.2); BASO % 1 % (0-3); EOS # 0.1 x10^3/uL (0.0-0.7); EOS % 1 % (0-3); HEMATOCRIT 37.3 % (36.0-47.0); HEMOGLOBIN 12.8 g/dL (12.0-15.5); LYMPH # 2.7 x10^3/uL (1.0-4.8); LYMPH % 28 % (24-48); MEAN CORPUSCULAR HEMOGLOBIN 33 pg (25-35); MEAN CORPUSCULAR HGB CONC 34 g/dL (31-37); MEAN CORPUSCULAR VOLUME 96 fL (79-100); MONO # 0.8 x10^3/uL (0.0-1.1); MONO % 8 % (0-9); NEUT # 6.2 x10^3/uL (1.8-7.7); NEUT % 63 % (31-73); PLATELET COUNT 220 x10^3/uL (140-400); RED BLOOD COUNT 3.88 x10^6/uL (3.50-5.40); RED CELL DISTRIBUTION WIDTH 12.8 % (11.5-14.5); WHITE BLOOD COUNT 9.8 x10^3/uL (4.0-11.0)
[2020-05-23] MEDS ORDERED: IV NORMAL SALINE 1000ML BAG 1,000 ML IV ONE (23:00)
[2020-05-23] MEDS ORDERED: MECLIZINE HCL 12.5 MG TABLET. PO ONE (23:00)
[2020-05-23] MEDS ORDERED: ONDANSETRON PF 4 MG/2 ML VIAL. IV ONE (23:00)
--- NOTE | 2020-05-23 23:02 | RAD ---
Chest AP portable at 2250: Reason for examination: Malaise. Comparison is made to previous study dated 05/22/2020. The heart size is normal. Mediastinum is unremarkable. Lung berg are clear. There continues be some mild elevation of the right hemidiaphragm. No acute bony abnormalities are seen. IMPRESSION: No acute cardiopulmonary disease. Electronically signed by: Janie Lundberg MD (05/23/2020 10:59 PM) [facility]
[2020-05-23 23:08] LABS: CALCIUM 9.2 mg/dL (8.5-10.1); GFR 53.9; POTASSIUM 3.6 mmol/L (3.5-5.1)
[2020-05-23 23:13] LABS: ALBUMIN 3.7 g/dL (3.4-5.0); ALBUMIN/GLOBULIN RATIO 1.2 (1.0-1.7); TOTAL BILIRUBIN 0.5 mg/dL (0.2-1.0); TOTAL PROTEIN 6.9 g/dL (6.4-8.2)
[2020-05-23 23:55] LABS: BILIRUBIN,URINE NEGATIVE (NEG); CLARITY,URINE CLEAR; COLOR,URINE YELLOW; NITRITE,URINE NEGATIVE (NEG); PROTEIN,URINE NEGATIVE (NEG-TRACE); UROBILINOGEN,URINE 0.2 mg/dL (0.2 mg/dL)
[2020-05-24 00:01] LABS: BACTERIA,URINE 0 /HPF (0-FEW)
[2020-05-24 00:54] VITALS: BP 164/88
== END 2020-05-24 01:30 | disposition home or self-care (01) ==
LOC: ER 22:12
DX: R53.1 Weakness (principal); R42 Dizziness and giddiness; K21.9 Gastro-esophageal reflux disease without esophagitis; E78.00 Pure hypercholesterolemia, unspecified; I10 Essential (primary) hypertension; Z88.0 Allergy status to penicillin; Z88.2 Allergy status to sulfonamides
CPT/HCPCS: 36415; 71045; 80053; 81001; 84484; 85025; 93005; 96361; 96374; 99285; J2405; J7030; J8597

== ENCOUNTER → 2020-06-25 | Outpatient (CLI) | payer MEDICARE ==
[~2020-06-25] MED LIST changes: -LISI-334 PO; +LISI20TA18 PO; -OMEP40CA45 PO; +OMEP40CA7 PO; +REGADENOSON 0.4 MG/5 ML DISP.SYRIN. IV ONE
--- NOTE | 2020-06-25 11:39 | RAD ---
MR#: [id number] Date of Study: 06/25/2020 Ordering Physician: JOSE JESUS, Referring Physician: IRENE DOWNING Tech: RT Hector (R) (N) APPROVED REPORT Test Type: Pharmacological Stress Nurse/Tech: Trever Garcia RN Test Indications: chest pain, HTN Cardiac History: HTN Medications: See Electronic Medical Record Medical History: See Electronic Medical Record Resting ECG: SR Resting Heart Rate: 66 bpm Resting Blood Pressure: 180/89mmHg Pretest Chest Pain: None Nurse/Tech Notes lungs CTA, S1S2 Consent: The procedure was explained to the patient in lay terms. Informed consent was witnessed. Abhijeet eout was entered into ITema. History and Stress Test performed by DISHA Horton, TAE (R) (N) Pharm. Details Pharmacologic stress testing was performed using 0.4mg per 5ml of regadenoson given intravenously ove r 7-10 seconds. Stress Symptoms No chest pain or symptoms. POST EXERCISE Reason for Termination: Infusion complete Max HR: 99 bpm Max Blood Pressure: 157/59mmHg Blood Pressure response to exercise: Normal blood pressure response during stress. Heart Rate response to exercise: normal response Chest Pain: No. Arrhythmia: No. ST Change: No. INTERPRETATION Stress EKG Conclusion: No evidence of stress induced EKG changes. Imaging Protocol IMAGE PROTOCOL: Rest Tc-99m/stress Tc-99m 1 day Rest: Stress: Viability: Radiopharm.Tc99m [id number] Sestamibi Dose10.4mCi 32mCi Duration 15min. 10min. Img Date 06/25/2020 06/25/2020 Inj-Img Znkr96ona. 60min. Rest Admin Site:IV - Right AntecubitalAdministrator:DISHA Horton ARRT (R)(N) Stress Admin Site: IV - Right AntecubitalAdministrator: DISHA Horton, TAE (R)(N) STRESS DATA End Diast. Vol.66.0mlAv. Heart Rate75.0bpm End Syst. Vol.6.0mlCO Index BSA0.0L/min Myocardial Mpip387.0gEject. Rafwsdfo42.0% Stress Rates Pk. Fill Rate3.72EDV/secLVtime Pk. Fill 217.78msec Pk. Empty Rate5.12ESV/secLVtime Pk. Odtuw651.89msec / Pk. Fill1.65EDV/sec Stress Scores Regional WT1.00Summed WT5.00 Regional WM0.00Summed WM0.00 LV Perfusion There is a small FIXED apical and distal inferoapical defect suggestive of prior infarct without any ischemia. Wall Motion Normal wall motion. EF 55% LV Perf. Quant 17 Seg. SSS4.00 17 Seg. SRS7.00 17 Seg. SDS0.00 Stress Defect Extent (% LAD)2.50Rest Defect Extent (% LAD)0.00Rev. Defect Extent (% LAD)0.00 Stress Defect Extent (% LCX) 2.50Rest Defect Extent (% LCX)8.80Rev. Defect Extent (% LCX)0.00 Stress Defect Extent (% RCA)1.10Rest Defect Extent (% RCA)7.80Rev. Defect Extent (% RCA)0.00 Stress Defect Extent (% AISLINN)5.70Rest Defect Extent (% AISLINN)8.70Rev. Defect Extent (% AISLINN)0.00 Other Information Quality:Average Risk Assessment: Low Risk Conclusion 1. No evidence of stress induced EKG changes 2. 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 3. Normal EF at 55% 4. Low risk study overall. Signed by : Mason Camargo, Electronically Approved : 06/25/2020 11:39:11
== END ==
LOC: NM 09:02
PROVIDERS: ATTEND Internal Medicine Cardiovascular Disease
DX: R07.9 Chest pain, unspecified (principal); I10 Essential (primary) hypertension
CPT/HCPCS: 78452; 93017; A9500; J2785